=== PATIENT | female | born 1955 | race Caucasian/White ===

== ENCOUNTER 2017-12-15 07:31 | Emergency (ER) | payer BC ==
[2017-12-15] MEDS: CEPHALEXIN 500 MG CAP PO (08:12)
== END 2017-12-15 08:15 | disposition home or self-care (01) ==
LOC: M ED 07:31
DX: L03.114 Cellulitis of left upper limb (principal); T50.905A Adverse effect of unspecified drugs, medicaments and biological substances, initial encounter; X58.XXXA Exposure to other specified factors, initial encounter; Y92.89 Other specified places as the place of occurrence of the external cause; K21.9 Gastro-esophageal reflux disease without esophagitis; Z91.040 Latex allergy status; Z79.899 Other long term (current) drug therapy; Z79.84 Long term (current) use of oral hypoglycemic drugs
CPT/HCPCS: 99282